=== PATIENT | male | born 1985 | race African-American/Black ===

== ENCOUNTER 2021-02-24 11:27 | Emergency (ER) | payer SELFPAY ==
[~2021-02-24] VITALS: Ht 167.6 cm; Wt 72.6 kg
--- NOTE | 2021-02-24 11:41 | NUR ---
PT EVALUATED BY DR DASH.
[2021-02-24 11:49] VITALS: BP 127/76
== END 2021-02-24 11:50 | disposition home or self-care (01) ==
LOC: ER 11:27
DX: L25.9 Unspecified contact dermatitis, unspecified cause (principal)
CPT/HCPCS: A4663

== ENCOUNTER 2021-07-29 14:38 | Outpatient (CLI) | payer BC ==
[2021-07-29 15:43] LABS: HEMATOCRIT 44.5 % (36.7-47.1); MEAN CORPUSCULAR VOLUME 88.9 fL (73.0-96.2); PLATELET COUNT (AUTO) 343 K/uL (152-348)
[2021-07-29 15:52] LABS: BILIRUBIN,TOTAL 0.3 mg/dL (0.2-1.0); CREATININE 1.2 mg/dL (0.6-1.3); MAGNESIUM 1.8 mg/dL (1.8-2.4); TOTAL PROTEIN, SERUM 8.2 g/dL (6.4-8.2)
[2021-07-29 15:55] LABS: *BILIRUBIN,URIN NEGATIVE (NEGATIVE); *BLOOD, URINE NEGATIVE (NEGATIVE); *CLARITY,URINE CLEAR (CLEAR); *COLOR,URINE YELLOW (YELLOW); *KETONES,URINE TRACE (NEGATIVE); *UROBILINOGEN,URINE 0.2 E.U./dl (NORMAL); LEUKOCYTE ESTERASE ,URINE NEGATIVE (NEGATIVE); NITRITE, URINE NEGATIVE (NEGATIVE); UGLUCOSE NEGATIVE (NEGATIVE)
[2021-07-29 16:00] LABS: THYROID STIMULATING HORMONE 1.18 mIU/mL (0.358-3.740)
== END 2021-07-29 23:59 | disposition home or self-care (01) ==
LOC: LAB 14:38
PROVIDERS: ATTEND Orthopaedic Surgery Adult Reconstructive Orthopaedic Surgery
DX: Z00.00 Encounter for general adult medical examination without abnormal findings (principal); E55.9 Vitamin D deficiency, unspecified
CPT/HCPCS: 36415; 82306; 83550; 83735; 84443; 85025; 86140; 86592

== ENCOUNTER 2021-12-29 10:52 | Emergency (ER) | payer BC ==
[~2021-12-29] VITALS: Ht 165.1 cm; Wt 72.6 kg
--- NOTE | 2021-12-29 11:12 | NUR ---
Dr. Fragoso at bedside for evaluation.
--- NOTE | 2021-12-29 11:24 | NUR ---
Hazardous Materials Handler assumes care: received patient for dicharge by Dr Fragoso: Patient is AOx4, calm & breathing easily, discharged to home in stable condition with brisk steady gait. Written and verbal after care instructions given. Patient verbalized understanding and compliance of instructions. Stressed follow up with primary doctor or return to ER for worsening s/s.
== END 2021-12-29 11:25 | disposition home or self-care (01) ==
LOC: ER 10:52
DX: R10.32 Left lower quadrant pain (principal); K59.00 Constipation, unspecified
CPT/HCPCS: A4663

== ENCOUNTER 2022-06-15 19:27 | Emergency (ER) | payer BC, OTHER ==
[~2022-06-15] VITALS: Ht 167.6 cm; Wt 70.3 kg
[2022-06-15] MEDS ORDERED: LIDOCAINE HCL 2% 20 ML VIAL ONE (20:12)
[2022-06-15] MEDS ORDERED: TDAP DIPH,PERTUSS,TET VAC/PF 0.5 ML DISP.SYRIN IM ONE ×2 (20:13→20:15)
[2022-06-15] MEDS ORDERED: LIDOCAINE HCL 2% 20 ML VIAL TP ONE (20:15)
--- NOTE | 2022-06-15 20:53 | NUR ---
Patient discharged to home in stable condition. Written and verbal after care instructions given. Patient verbalizes understanding of instructions. Stressed follow up or return to ER for worsening s/s. Patient is a/ox4, NAD noted. patient ambulated with steady gait.
[2022-06-15 20:54] VITALS: BP 130/68
== END 2022-06-15 20:59 | disposition home or self-care (01) ==
LOC: ER 19:28
DX: S61.215A Laceration without foreign body of left ring finger without damage to nail, initial encounter (principal); W26.8XXA Contact with other sharp object(s), not elsewhere classified, initial encounter; Y93.89 Activity, other specified; Y92.89 Other specified places as the place of occurrence of the external cause; Y99.0 Civilian activity done for income or pay
CPT/HCPCS: 90715; A4663; J3490